=== PATIENT | male | born 1970 | race Caucasian/White ===

== ENCOUNTER 2019-11-01 21:36 | Emergency (ER) | payer OTHER, SELFPAY ==
[~2019-11-01] VITALS: Ht 198.1 cm; Wt 118.0 kg
[2019-11-01 21:51] VITALS: BP 151/96
[2019-11-01] MEDS ORDERED: LIDOCAINE-MPF 1%, 5ML ONE (22:12)
[2019-11-01] MEDS ORDERED: DIPH,PERTUSS(ACELL),TET VAC/PF 0.5 ML IM-VACC ONE ×2 (22:30→22:42)
[2019-11-01] MEDS ORDERED: NEOSPORIN OINT. PKT 1 PACKET ONE (23:21)
== END 2019-11-01 23:26 | disposition home or self-care (01) ==
LOC: ED 22:36
DX: S60.571A Other superficial bite of hand of right hand, initial encounter (principal); Z88.0 Allergy status to penicillin; W54.0XXA Bitten by dog, initial encounter; Y93.89 Activity, other specified; Y92.098 Other place in other non-institutional residence as the place of occurrence of the external cause; Y99.8 Other external cause status
CPT/HCPCS: 12041; 90471; 90715; 99284